=== PATIENT | male | born 1980 | race Caucasian/White ===

== ENCOUNTER 2016-12-09 10:48 | Emergency (ER) | payer SELFPAY | END 2016-12-09 14:02 | disposition home or self-care (01) | LOC: FER 10:48 | DX: J20.9 Acute bronchitis, unspecified (principal); J45.909 Unspecified asthma, uncomplicated; Z87.891 Personal history of nicotine dependence; Z79.51 Long term (current) use of inhaled steroids | CPT/HCPCS: 71020; 87804; 87899; 94640; J1885 ==